=== PATIENT | male | born 1965 | race Caucasian/White ===

== ENCOUNTER 2017-02-26 09:40 | Emergency (ER) | payer BC, OTHER ==
[2017-02-26 10:06] VITALS: BP 110/74; PULSE 94; RESP 20
--- NOTE | 2017-02-26 11:12 | ED ---
General Adult HPI - General Chief complaint: Neck Pain/Injury Stated complaint: POSS CVA, NECK AND LEFT SHOULDER PAIN Time Seen by Provider: 02/26/17 10:15 Source: patient, RN notes reviewed Mode of arrival: ambulatory Limitations: no limitations - History of Present Illness Initial comments: Patient 51-year-old male who presents emergency room today with a chief complaint of left-sided neck pain. He states he was shaving swelling approximate 2 hours, he noticed some swelling to left side of his neck. He states he felt very tender in his left shoulder and neck area. He states the swelling is gone away but he is experiencing still some tenderness over the left side of his neck that is worse with certain movements and on palpation. Patient states he is concerned because he did donate plasma twice in the past week. He states he was unsure if this could be related to some kind of blood clot. Patient denies any other complaints or associated symptoms. Patient denies any recent fever, chills, shortness of breath, chest pain, back pain, abdominal pain, nausea or vomiting, numbness or tingling, dysuria or hematuria, constipation or diarrhea, headaches or visual changes, or any other complaints. - Related Data Allergies Allergy/AdvReac Type Severity Reaction Status Date / Time erythromycin base AdvReac Unknown Verified 02/26/17 10:00 Penicillins AdvReac Unknown Verified 02/26/17 10:00 Review of Systems ROS Statement: Those systems with pertinent positive or pertinent negative responses have been documented in the HPI. ROS Other: All systems not noted in ROS Statement are negative. Past Medical History Past Medical History: Myocardial Infarction ([place]) Additional Past Medical History / Comment(s): hiatal hernia, kidney stones History of Any Multi-Drug Resistant Organisms: None Reported Additional Past Surgical History / Comment(s): FATTY TUMOR REMOVED , EGD. Past Anesthesia/Blood Transfusion Reactions: No Reported Reaction, Previous Problems w/ Anesthesia Additional Past Anesthesia/Blood Transfusion Reaction / Comment(s): STATES BLOODPRESSURE DROPPED WITH EGD. Past Psychological History: No Psychological Hx Reported Smoking Status: Current every day smoker Past Alcohol Use History: Occasional Past Drug Use History: None Reported - Past Family History Mother Family Medical History: No Reported History General Exam - General Exam Comments Initial Comments: General: The patient is awake and alert, in no distress, and does not appear acutely ill. Eye: Pupils are equal, round and reactive to light, extra-ocular movements are intact. No nystagmus. There is normal conjunctiva bilaterally. No signs of icterus. Ears, nose, mouth and throat: There are moist mucous membranes and no oral lesions. Neck: The neck is supple, there is no tenderness or JVD. Cardiovascular: There is a regular rate and rhythm. No murmur, rub or gallop is appreciated. Respiratory: Lungs are clear to auscultation, respirations are non-labored, breath sounds are equal. No wheezes, stridor, rales, or rhonchi. Musculoskeletal: Normal ROM. Patient has normal appearance of cervical, thoracic, lumbar spine there is no step-offs deformity is no tenderness midline. Patient does have some tenderness to the left lateral anterior aspect of his neck. No signs swelling bruising. No bruit. Strength 5/5. Sensation intact. Pulses equal bilaterally 2+. Neurological: A&O x 3. CN II-XII intact, There are no obvious motor or sensory deficits. Coordination appears grossly intact. Speech is normal. Skin: Skin is warm and dry and no rashes or lesions are noted. Psychiatric: Cooperative, appropriate mood & affect, normal judgment. Limitations: no limitations Course Vital Signs 02/26/17 10:00 Pulse Rate 94 Respiratory 20 Rate Blood Pressure 110/74 O2 Sat by Pulse 97 Oximetry Medical Decision Making - Medical Decision Making Patient was seen by attending physician Dr. Plaacios here in emergency room. Patient was advised that he is asymmetric at this time there is no swelling appreciated. Advised possibly muscle spasm. Patient repeatedly asking for blood tests. States he's worried about blood clot. He has no extremity swelling or tenderness. There is no redness no erythema no sign of infection. Patient will be discharged home advised to follow-up the family doctor. Patient did leave prior to discharge instructions. Disposition Clinical Impression: Neck pain Disposition: HOME SELF-CARE Condition: Good Referrals: None,Stated [Primary Care Provider] - 1-2 days Time of Disposition: 11:25
== END 2017-02-26 11:24 | disposition home or self-care (01) ==
LOC: EC 09:40
DX: M54.2 Cervicalgia (principal); F17.200 Nicotine dependence, unspecified, uncomplicated; Z88.0 Allergy status to penicillin; Z88.1 Allergy status to other antibiotic agents
CPT/HCPCS: 99283